=== PATIENT | female | born 1945 | race Caucasian/White ===

== ENCOUNTER → 2017-09-21 | Outpatient (CLI) | payer MEDICARE ==
[~2017-09-21] MED LIST: ACETAMINOPHEN-1 EAC1 PO; AUGMENTIN 875875 MG PO; CEPHALEXIN 500500 M3 PO; CLEOCIN HCL300 MG PO; DAYTIME COLD-F1 EACH PO; IBUPROFEN 200200 M1 PO; PREDNISONE50 MG PO; TRAMADOL 50 MG50 MG PO; VALTREX1000 MG PO; amoxicillin
== END ==
LOC: M.RAD 09:00
DX: M19.012 Primary osteoarthritis, left shoulder (principal); M81.0 Age-related osteoporosis without current pathological fracture; Z78.0 Asymptomatic menopausal state

== ENCOUNTER → 2018-07-10 | Outpatient (CLI) | payer MEDICARE | LOC: M.RAD 12:32 | DX: Z12.31 Encounter for screening mammogram for malignant neoplasm of breast (principal) ==

== ENCOUNTER → 2018-07-14 | Outpatient (CLI) | payer MEDICARE | LOC: M.RAD 07-12 11:16 | DX: R92.8 Other abnormal and inconclusive findings on diagnostic imaging of breast (principal) ==

== ENCOUNTER → 2018-07-19 | Outpatient (CLI) | payer MEDICARE ==
[2018-07-19 08:56] LABS: CREATININE 1.1 mg/dL (0.6-1.3)
== END ==
LOC: M.LAB 07:30 → M.MRI 08:30
PROVIDERS: Family Medicine
DX: C50.311 Malignant neoplasm of lower-inner quadrant of right female breast (principal); N63.23 Unspecified lump in the left breast, lower outer quadrant

== ENCOUNTER → 2019-01-10 | Outpatient (CLI) | payer MEDICARE ==
--- NOTE | 2019-01-10 14:06 | 2DMMODE ---
[place] [address] 2 D/M-MODE ECHOCARDIOGRAM Name: CHAR CASTILLO Room: [facility]#: [id number] Admission: 01/10/19 Attend Phys: HUMERA GUERRA Discharge: Date of : 45 Date of Service: 01/10/19 1406 Report #: [id number] THIS REPORT FOR: //name// APPROVED REPORT Study performed: 01/10/2019 10:28:14 EXAM: Comprehensive 2D, Doppler, and color-flow Echocardiogram Patient Location: Out-Patient BSA: 1.75 HR: 66 bpm BP: 125/78 mmHg Other Information Study Quality: Excellent Indications Murmur Echo Enhancing Agent Indication: Rule out Shunt Agent(s) / Amount(s) Used: Agitated Saline 6 cc 2D Dimensions IVSd: 10.98 (7-11mm) LVOT Diam: 20.79 (18-24mm) LVDd: 41.77 mm PWd: 9.74 (7-11mm) Ascending Ao: 26.33 (22-36mm) LVDs: 19.41 (25-40mm) Aortic Root: 26.73 mm Volumes Left Atrial Volume (Systole) LA ESV Index: 18.90 mL/m2 Aortic Valve AoV Peak Julian.: 2.31 m/s AO Peak Gr.: 21.34 mmHg LVOT Max P.04 mmHg AO Mean Gr.: 11.99 mmHg LVOT Mean P.71 mmHg LVOT Max V: 1.50 m/s AO V2 VTI: 48.58 cm LVOT Mean V: 1.00 m/s [place] (VTI): 2.39 cm2 LVOT V1 VTI: 34.25 cm Mitral Valve E/A Ratio: 0.77 [place] [address] 2 D/M-MODE ECHOCARDIOGRAM Name: CHAR CASTILLO Room: [facility]#: [id number] Admission: 01/10/19 Attend Phys: HUMERA GUERRA Discharge: Date of : 45 Date of Service: 01/10/19 1406 Report #: [id number] MV Decel. Time: 358.45 ms MV E Max Julian.: 0.93 m/s MV PHT: 103.95 ms MVA (PHT): 2.12 cm2 TDI E/Lateral E': 11.63 E/Medial E': 13.29 Medial E' Julian.: 0.07 m/s Lateral E' Julian.: 0.08 m/s Pulmonary Valve PV Peak Julian.: 1.27 m/s PV Peak Gr.: 6.40 mmHg Tricuspid Valve RAP Estimate: 5.00 mmHg TR Peak Gr.: 19.36 mmHg RVSP: 24.36 mmHg PA Pressure: 24.36 mmHg Left Ventricle The left ventricle is normal size. There is normal LV segmental wall motion. There is normal left ventricular wall thickness. Left ventricular systolic function is normal. The left ventricular ejection fraction is within the normal range. LVEF is 70%. Grade I - abnormal relaxation pattern. Right Ventricle The right ventricle is normal size. The right ventricular systolic function is normal. Atria The left atrium size is normal. Injection of bubbles documented no interatrial shunt. The right atrium size is normal. Aortic Valve Aortic valve is mildly calcified. No aortic regurgitation is present. There is no aortic valvular stenosis. Mitral Valve Mild mitral annular calcification. Mild mitral regurgitation. No evidence of mitral valve stenosis. Tricuspid Valve The tricuspid valve is normal in structure. Mild tricuspid regurgitation. [place] [address] 2 D/M-MODE ECHOCARDIOGRAM Name: CHAR CASTILLO Room: [facility]#: [id number] Admission: 01/10/19 Attend Phys: HUMERA GUERRA Discharge: Date of : 45 Date of Service: 01/10/19 1406 Report #: [id number] The pulmonary valve is normal in structure. Mild pulmonic regurgitation. Great Vessels The aortic root is normal in size. IVC is normal in size and collapses >50% with inspiration. Pericardium There is no pericardial effusion. <Conclusion> LVEF is 70%. Aortic valve is mildly calcified. Injection of bubbles documented no interatrial shunt. <ELECTRONICALLY SIGNED> By: Rakesh Mcclelland MD, FACC 01/10/19 1406 1406 140 Rakesh Mcclelland MD, FACC /INF
== END ==
LOC: M.CRD 10:00
DX: I08.8 Other rheumatic multiple valve diseases (principal); G89.29 Other chronic pain; M81.0 Age-related osteoporosis without current pathological fracture; E55.9 Vitamin D deficiency, unspecified; Z68.26 Body mass index [BMI] 26.0-26.9, adult

== ENCOUNTER → 2019-09-11 | Outpatient (CLI) | payer MEDICARE | LOC: M.RAD 11:04 | DX: Z12.31 Encounter for screening mammogram for malignant neoplasm of breast (principal) ==

== ENCOUNTER → 2019-09-18 | Outpatient (CLI) | payer MEDICARE | LOC: M.RAD 14:06 | DX: N64.89 Other specified disorders of breast (principal) ==

== ENCOUNTER → 2020-10-07 | Outpatient (CLI) | payer MEDICARE | LOC: M.RAD 13:02 | PROVIDERS: ATTEND Internal Medicine | DX: Z12.31 Encounter for screening mammogram for malignant neoplasm of breast (principal) ==

== ENCOUNTER → 2021-03-24 | Outpatient (CLI) | payer MEDICARE ==
--- NOTE | 2021-03-24 13:34 | 2DMMODE ---
[place] [address] 2 D/M-MODE ECHOCARDIOGRAM Name: CHAR CASTILLO Room: [facility]#: [id number] Admission: 03/24/21 Attend Phys: HUMERA GUERRA Discharge: Date of : 45 Date of Service: 03/24/21 1334 Report #: [id number] THIS REPORT FOR: cc: HUMERA GUERRA MD, HEATHER L. MD Liston, Michael J. MD [facility] ~ APPROVED REPORT Study performed: 03/24/2021 10:39:37 EXAM: Comprehensive 2D, Doppler, and color-flow Echocardiogram Patient Location: Out-Patient BSA: 1.72 HR: 65 bpm BP: 130/60 mmHg Other Information Study Quality: Good Indications Aortic Valve Disease 2D Dimensions IVSd: 18.51 (7-11mm) LVOT Diam: 21.23 (18-24mm) LVDd: 29.87 mm PWd: 12.20 (7-11mm) Ascending Ao: 32.06 (22-36mm) LVDs: 24.47 (25-40mm) Aortic Root: 27.12 mm Volumes Left Atrial Volume (Systole) LA ESV Index: 19.10 mL/m2 Aortic Valve AoV Peak Julian.: 2.63 m/s AO Peak Gr.: 27.62 mmHg LVOT Max P.98 mmHg AO Mean Gr.: 15.92 mmHg LVOT Mean P.90 mmHg LVOT Max V: 1.50 m/s AO V2 VTI: 58.34 cm LVOT Mean V: 1.04 m/s [place] (VTI): 1.83 cm2 LVOT V1 VTI: 30.10 cm Mitral Valve E/A Ratio: 0.68 [place] [address] 2 D/M-MODE ECHOCARDIOGRAM Name: CHAR CASTILLO Room: [facility]#: [id number] Admission: 03/24/21 Attend Phys: HUMERA GUERRA Discharge: Date of : 45 Date of Service: 03/24/21 1334 Report #: [id number] MV Decel. Time: 410.24 ms MV E Max Julian.: 0.95 m/s MV PHT: 118.97 ms MVA (PHT): 1.85 cm2 TDI E/Lateral E': 15.83 E/Medial E': 19.00 Medial E' Julian.: 0.05 m/s Lateral E' Julian.: 0.06 m/s Pulmonary Valve PV Peak Julian.: 1.30 m/s PV Peak Gr.: 6.71 mmHg Tricuspid Valve RAP Estimate: 5.00 mmHg TR Peak Gr.: 21.42 mmHg RVSP: 26.42 mmHg PA Pressure: 26.42 mmHg Left Ventricle The left ventricle is normal size. No segmental wall motion abnormalities identified. Mild concentric left ventricular hypertrophy. Left ventricular systolic function is vigorous with near cavity obliteration. Ejection fraction estimated to be 90 to 95%. LVEF is 90 to 95%. Grade I - abnormal relaxation pattern. Right Ventricle The right ventricle is normal size. The right ventricular systolic function is normal. Atria The left atrium size is normal. Lipomatous hypertrophy of the interatrial septum is noted. The right atrium size is normal. Aortic Valve The Aortic valve is sclerotic. No aortic regurgitation is present. Mild aortic stenosis. Mitral Valve There is mitral annular calcification. Trace mitral regurgitation. Mild mitral stenosis. Tricuspid Valve The tricuspid valve is normal in structure. Trace tricuspid regurgitation. No pulmonary hypertension. [place] [address] 2 D/M-MODE ECHOCARDIOGRAM Name: CHAR CASTILLO Room: [facility]#: [id number] Admission: 03/24/21 Attend Phys: HUMERA GUERRA Discharge: Date of : 45 Date of Service: 03/24/21 1334 Report #: [id number] The pulmonary valve is normal in structure. Trace pulmonic regurgitation. Great Vessels The aortic root is normal in size. IVC is normal in size and collapses >50% with inspiration. Pericardium There is no pericardial effusion. <Conclusion> The left ventricle is normal size. Mild concentric left ventricular hypertrophy. Left ventricular systolic function is vigorous with near cavity obliteration. Ejection fraction estimated to be 90 to 95%. LVEF is 90 to 95%. Grade I - abnormal relaxation pattern. No segmental wall motion abnormalities identified. The Aortic valve is sclerotic. Mild aortic stenosis. Mild mitral stenosis. Trace tricuspid regurgitation. No pulmonary hypertension. IVC is normal in size and collapses >50% with inspiration. <ELECTRONICALLY SIGNED> By: Joni Warner MD, FACC 03/24/21 1334 1334 1334 Joni Warner MD, FACC /INF
== END ==
LOC: M.CRD 10:39
PROVIDERS: ATTEND Internal Medicine
DX: I08.0 Rheumatic disorders of both mitral and aortic valves (principal); R05 Cough; R55 Syncope and collapse

== ENCOUNTER → 2021-04-17 | Outpatient (CLI) | payer MEDICARE | LOC: M.ULTRA 04-08 08:51 | PROVIDERS: ATTEND Internal Medicine | DX: N18.32 Chronic kidney disease, stage 3b (principal) ==

== ENCOUNTER → 2021-10-06 | Outpatient (CLI) | payer MEDICARE | LOC: M.RAD 13:54 | PROVIDERS: ATTEND Internal Medicine | DX: Z12.31 Encounter for screening mammogram for malignant neoplasm of breast (principal) ==